=== PATIENT | male | born 1995 | race Caucasian/White ===

== ENCOUNTER 2017-08-06 07:43 | Emergency (ER) | payer OTHER ==
[2017-08-06 07:50] VITALS: RESP 16; TEMP 97.5
--- NOTE | 2017-08-06 09:38 | EDPHY ---
General Narrative: CHIEF COMPLAINT: Right index finger laceration HISTORY OF PRESENT ILLNESS: Patient complains of laceration to the tip of the right index finger. He says he went to strip picker the bottle of alcohol the have broke around midnight when it cut him in the right index finger. This was 1 large piece of glass and not multiple small pieces. The glass did not break. He had bleeding that he put pressure on. No numbness but some tingling. No difficulty bending or straightening the finger. No injury elsewhere. Tetanus is up-to-date. No other modifying factors. No other associated complaints TIME OF INJURY: Midnight same day of presentation TETANUS STATUS: Less than 4 years ago REVIEW OF SYSTEMS: Ten systems reviewed and are negative unless otherwise noted in the HPI EXAMINATION General Appearance: Alert, no distress Head: normocephalic, atraumatic Cardiovascular: Pulses normal throughout. Symmetric radial pulses. Brisk cap refill in all 5 fingers of the right hand. Neurological: A&O, sensory symmetric, strength symmetric. Good strength of the interossei. Skin: Warm and dry, no rash. 1 cm curvilinear laceration on the volar aspect of the right index finger distal phalanx. Nonpulsatile bleeding. No foreign body. Extremities: Nontender, no pedal edema DIFFERENTIAL DIAGNOSES: Including but not limited to laceration, complex laceration, laceration with tendon injury MDM: 8:55 a.m. Laceration to the distal right index finger. No active bleeding. Neurovascular intact. Digital block administered. Proceed with irrigation re- evaluation for closure 9:35 a.m. Simple laceration of the right index finger distal phalanx. No tendon injury. No vascular compromise. Neurovascular intact. Wound was irrigated and closed without complication. Wound care discussed. Follow up here in 7-10 days for suture removal. ED precautions discussed PROCEDURE: Laceration repair Consent: Verbal Location: Right index finger, distal phalanx Length of repair: 1.25 cm, curvilinear Complexity: Simple Layer involvement: Single Anesthesia: Digital Irrigation: Extensive Debridement: None Procedure description: Following good anesthesia, the wound was copiously irrigated. Wound bed was explored and there is no foreign body noted. No exposure of the flexor tendon Wound borders were approximated well with good hemostasis. Tolerated well without complication. Suture/Staple material: 5-0 Prolene, 3 simple interrupted sutures Wound care: Routine as discussed Suture/Staple removal: 7-10 Days SUTURE STAPLE REMOVAL: 7-10 days ED Precautions: Worsening pain. Erythema, edema, cyanosis, pallor, paresthesia or anesthesia. SUPERVISION: This patient was independently evaluated without direct examination by the attending physician. Case was discussed with attending physician. - History Smoking Status: Never smoked - Objective Vital Signs: Initial Vital Signs Temperature (C) 97.5 F 08/06/17 07:46 Heart Rate 81 08/06/17 07:46 Respiratory Rate 16 08/06/17 07:46 Blood Pressure 107/75 08/06/17 07:46 O2 Sat (%) 95 08/06/17 07:46 O2 Delivery Mode Room Air Allergies/Adverse Reactions: No Known Allergies Allergy (Unverified 08/06/17 07:45) Home Medications: Medication Instructions Recorded Cephalexin [Keflex (*)] 500 mg PO TID #30 cap 08/06/17 Departure - Departure Disposition: Home, Routine, Self-Care Clinical Impression: Finger laceration Qualifiers: Encounter type: initial encounter Finger: index finger Damage to nail status: without damage Foreign body presence: without foreign body Laterality: right Qualified Code(s): S61.210A - Laceration without foreign body of right index finger without damage to nail, initial encounter Condition: Good Instructions: Care For Your Stitches (ED), Laceration (ED) Additional Instructions: 1. Daily wound care as discussed 2. Keflex prophylaxis 3. ED precautions Number for suture removal at this emergency department in 7-10 days Referrals: NONE *PRIMARY CARE P,. [Primary Care Provider] - As per Instructions Physician,Emergency Dept, [Medical Doctor] - As per Instructions Prescriptions: Cephalexin [Keflex (*)] 500 mg PO TID #30 cap
[2017-08-06 09:58] VITALS: BP 112/69; PULSE 78; O2SAT 96
== END 2017-08-06 09:58 | disposition home or self-care (01) ==
PROC: 0HQFXZZ Repair Right Hand Skin, External Approach (ICD-10-PCS; principal; 2017-08-06)
DX: S61.210A Laceration without foreign body of right index finger without damage to nail, initial encounter (principal); W25.XXXA Contact with sharp glass, initial encounter